=== PATIENT | female | born 1960 | race Caucasian/White ===

== ENCOUNTER 2016-11-02 09:43 | Outpatient (CLI) | payer OTHER | END 2016-11-02 09:44 | disposition home or self-care (01) | LOC: HPCALD 09:43 | PROVIDERS: ATTEND Family Medicine | DX: E78.2 Mixed hyperlipidemia (principal) | CPT/HCPCS: 36415; 80061 ==

== ENCOUNTER 2018-05-02 10:02 | Outpatient (CLI) | payer BC ==
--- NOTE | 2018-05-02 15:32 | RAD ---
LUMBAR SPINE 3 VIEWS: DATE: 05/02/2018. FINDINGS: Degenerative disk disease is present at L4-L5 with disk space narrowing with a vacuum phenomenon, end plate sclerosis, and osteophytes both anteriorly and posteriorly. This is the level most suspect fo r potentially causing radicular pain. Minor narrowing is seen at L5-S1 and maybe L3-L4. These level s are not as dramatic. Facet arthritis is present, particularly at the L4-L5 level. The SI joints w ere symmetrical and normal in appearance. An incidental finding is partial sacralization of L5 on t he left. IMPRESSION: Degenerative changes of the spine with pronounced degenerative disk disease at L4-L5. MRI is recomme nded to determine any neural impingement if possible. POS: HOME
== END 2018-05-02 10:03 | disposition home or self-care (01) ==
LOC: BURRAD 10:02
PROVIDERS: ATTEND Family Medicine
DX: M46.1 Sacroiliitis, not elsewhere classified (principal); M51.16 Intervertebral disc disorders with radiculopathy, lumbar region; M47.816 Spondylosis without myelopathy or radiculopathy, lumbar region
CPT/HCPCS: 72100